=== PATIENT | female | born 1965 | race Caucasian/White ===

== ENCOUNTER 2017-05-08 12:36 | Emergency (ER) | payer SELFPAY ==
[~2017-05-08] VITALS: Ht 154.9 cm; Wt 58.5 kg
[2017-05-08] MEDS ORDERED: MOTRIN600 MG PO (15:46)
[2017-05-08 16:01] VITALS: BP 115/74
== END 2017-05-08 16:03 | disposition home or self-care (01) ==
LOC: EME 12:36
DX: H57.13 Ocular pain, bilateral (principal); F17.200 Nicotine dependence, unspecified, uncomplicated
CPT/HCPCS: 99281; 99284